=== PATIENT | male | born 1935 | race Caucasian/White ===

== ENCOUNTER 2017-02-09 09:04 | Day surgery (SDC) | payer MEDICARE, OTHER ==
--- NOTE | ~2017-02-09 | EGD ---
EGD REPORT [facility] [address] [address] NAME: TONY SONG : 39 STATUS : REG [facility]#: [id number] AGE: 81 ADM/REG DATE : 02/09/17 MR#: [id number] REPORT SERV DATE: 02/09/17 DICTATED BY: ANI GOODEN DATE: 02/09/17 REPORT STATUS : Draft TRANSCRIBED BY: [facility] DATE: 02/09/17 Endoscopy Center Patient Name: Tony Song. Date of : 1935 Attending MD: ANI GOODEN MD Procedure Date No Time: 02/09/2017 Procedure: Colonoscopy Indications: Screening for colorectal malignant neoplasm Referring MD: TU LLAMAS Medicines: as per anesthesia Complications: No immediate complications. Procedure: Pre-Anesthesia Assessment: - ASA Grade Assessment: II - A patient with mild systemic disease. After I obtained informed consent, the scope was passed under direct vision. Throughout the procedure, the patient's blood pressure, pulse, and oxygen saturations were monitored continuously. The PCF [id number] was introduced through the anus and advanced to the cecum, identified by appendiceal orifice and ileocecal valve. The colonoscopy was performed without difficulty. The patient tolerated the procedure. The quality of the bowel preparation was fair. Findings: The perianal and digital rectal examinations were normal. Internal hemorrhoids were found during endoscopy and were mild. Impression: - Internal hemorrhoids. Recommendation: - Continue present medications. Procedure Code(s): --- Professional --- 87237, Colonoscopy, flexible, proximal to splenic flexure; diagnostic, with or without collection of specimen(s) by brushing or washing, with or without colon decompression (separate procedure) Diagnosis Code(s): --- Professional --- K64.8, Other hemorrhoids Z12.11, Encounter for screening for malignant neoplasm of colon CPT copyright 2013 [employer] [employer]. All rights reserved. EGD REPORT [facility] [address] [address] NAME: TONY SONG : 39 STATUS : REG [facility] [place] PAT#: [id number] AGE: 81 ADM/REG DATE : 02/09/17 MR#: [id number] REPORT SERV DATE: 02/09/17 DICTATED BY: ANI GOODEN. DATE: 02/09/17 REPORT STATUS : Draft TRANSCRIBED BY: [employer] DATE: 02/09/17 The codes documented in this report are preliminary and upon auto adjudication specialist review may be revised to meet current compliance requirements. ANI GOODEN MD 02/09/2017 11:56 AM This report has been signed electronically. Number of Addenda: 0 Note Initiated On: 02/09/2017 11:14 AM Scope Withdrawal Time 0 hours 13 minutes 21 seconds [address] [id number]
[~2017-02-09 09:04] MED LIST: COZAAR100 MG PO; LEVOTHYROXIN50 MCG PO; LIPITOR20 PO
== END 2017-02-09 23:59 | disposition home or self-care (01) ==
LOC: DMU 09:04
PROVIDERS: Internal Medicine Gastroenterology
PROC: 0DJD8ZZ Inspection of Lower Intestinal Tract, Via Natural or Artificial Opening Endoscopic (ICD-10-PCS; principal; 2017-02-09 11:00)
DX: Z12.11 Encounter for screening for malignant neoplasm of colon (principal); K64.8 Other hemorrhoids; I10 Essential (primary) hypertension; E78.00 Pure hypercholesterolemia, unspecified; E03.9 Hypothyroidism, unspecified; Z87.891 Personal history of nicotine dependence; Z88.0 Allergy status to penicillin; Z98.890 Other specified postprocedural states; Z79.899 Other long term (current) drug therapy